=== PATIENT | male | born 1960 | race Caucasian/White ===

== ENCOUNTER → 2018-10-26 09:42 | Outpatient (CLI) | payer OTHER, SELFPAY ==
[2018-10-26 11:05] LABS: BUN 13 mg/dL (7-18); Creatinine, Serum 1.11 mg/dL (0.70-1.30); EST Glomerular Filtration Rate 72 mL/min (>60); Est Glom Filt Rate - Afr Amer 87 mL/min (>60)
== END ==
PROVIDERS: Family Provider Family Medicine; PCP Family Medicine
DX: I73.9 Peripheral vascular disease, unspecified (principal)
CPT/HCPCS: 36415; 82565; 84520

== ENCOUNTER → 2020-09-13 09:17 | Outpatient (CLI) | payer SELFPAY ==
[2020-09-16 05:06] LABS: HEPATITIS B SURFACE AG Negative (Negative); Hepatitis A AB, Total Negative (Negative); Hepatitis A IgM Antibody Negative (Negative); Hepatitis B Core AB IgM Negative (Negative); Hepatitis B Core Ab Total Negative (Negative); Hepatitis C Ab <0.1 s/co ratio (0.0-0.9); QNTFERON TB Mitogen Value > 10.00 IU/mL (.); QNTFERON TB Nil Value 0.04 IU/mL (.); QNTFERON TB1+ Ag Value 0.03 IU/mL (.); QNTFERON TB2+ Ag Value 0.04 IU/mL (.)
[2020-09-16 12:33] LABS: Hep B Surface Antibodies Non Reactive (.); QNTIFERON TB Positive Criteria Negative (Negative)
== END ==
LOC: MTLAB 09:18
PROVIDERS: PCP Family Medicine; Referring Provider Dermatology Pediatric Dermatology; Visit Provider Dermatology Pediatric Dermatology
DX: L40.0 Psoriasis vulgaris (principal); Z79.899 Other long term (current) drug therapy
CPT/HCPCS: 36415; 86480; 86704; 86705; 86706; 86708; 86709; 86803; 87340

== ENCOUNTER 2020-11-17 13:50 | Observation (INO) | payer OTHER, SELFPAY ==
[2020-11-17] VITALS (17 sets, daily range): BP systolic 132–176; BP diastolic 74–94; PULSE 82–90; RESP 13–19; TEMP 36–36.8; O2SAT 93–97; BMI 33.3; BMI 37.5; BMI 36.7
--- NOTE | 2020-11-17 14:11 | EKG12_ITS ---
Test Reason : Blood Pressure : / mmHG Vent. Rate : 084 BPM Atrial Rate : 084 BPM P-R Int : 162 ms QRS Dur : 104 ms QT Int : 378 ms P-R-T Axes : 031 -50 038 degrees QTc Int : 446 ms Normal sinus rhythm Left anterior fascicular block Poor R wave progression Abnormal ECG Confirmed by EMILY MURPHY, YAN ([id number]), order editor MERISSA MARTIN ([id number]) on 11/22/2020 2:18:21 PM Referred By: JOHANA Confirmed By:YAN DIAZ MD
--- NOTE | 2020-11-17 14:11 | RAD_ITS ---
STUDY: X-RAY CHEST REASON FOR EXAM: Male, 60 years old. Neuro deficit, acute, stroke suspected TECHNIQUE: Single AP portable view of the chest. COMPARISON: Comparison is made with prior study 07/14/2015. FINDINGS: EKG electrodes are seen. The lungs are clear and expanded. There is no demonstrated pleural abnormality. Normal size heart. Normal mediastinum and essence. Normal visualized pulmonary arteries. Normal visualized aortic arch and descending thoracic aorta. There are diffuse degenerative changes of the visualized thoracic spine. Normal visualized ribs, clavicles, and shoulders. There is no demonstrated abnormality of the visualized soft tissue structures of the upper abdomen. RAD/Chest 1 View IMPRESSION: No acute abnormality is seen. Electronically Signed: Renzo Allen MD at 15:06 EST , Service support ,
--- NOTE | 2020-11-17 14:11 | CT_ITS ---
STUDY: CT HEAD STROKE PROTOCOL W/O CONTRAST INJECTION REASON FOR EXAM: Male, 60 years old. Neuro deficit, acute, stroke suspected RADIATION DOSAGE (If Supplied By Facility): CTDIvol = ( 44.99 ) mGy, DLP = ( 812.98 ) mGycm TECHNIQUE: Transaxial CT imaging of the brain was performed without administration of intravenous contrast material. Individualized dose optimization techniques were used for this CT. COMPARISON: No relevant priors. FINDINGS: Normal soft tissue structures. Normal calvarium. There is mild cerebral atrophy with widening of the extra-axial spaces and ventricular dilatation. There are areas of decreased attenuation within the white matter tracts of the supratentorial brain, consistent with microvascular disease changes. Normal basal ganglia and thalami. Normal brainstem. Normal cerebellum. There is no intracranial hemorrhage. There are no findings of an acute ischemic infarction. Normal visualized paranasal sinuses. CT/STROKE Brain/Head without Cont IMPRESSION: Chronic involutional changes of the brain. N.B. : The above information has been verbally conveyed by Renzo Allen MD to Melissa Tita on 11/17/2020 15:03:15 (ET). Electronically Signed: Renzo Allen MD at 15:04 EST , Service support ,
--- NOTE | 2020-11-17 14:13 | ED.VISSUMM ---
- ER Visit Summary Date of Service: 11/17/20 Chief Complaint: Right arm weakness History of Present Illness: The patient is a 60 M with right arm weakness. Patient states that this started yesterday morning. 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 He states he also noticed a change in his gait and increasing right leg weakness as well. He denies speech or vision changes. Denies numbness or tingling. Denies vertigo. Denies confusion. Denies other complaints. Physical Examination: Vitals are stable. Patient is afebrile. Alert no acute distress. HEENT exam is unremarkable. Neck is supple. Lungs are clear and equal bilaterally. Heart is regular rate and rhythm. Abdomen is soft nontender nondistended. Extremities are unremarkable. Skin is warm and dry. NIH 1: Right arm weakness Remainder of exam is unremarkable. Emergency Department Course and Treatment: EKG is sinus rhythm rate of 84 with no acute ischemic changes. CBC shows white count 12.0, hemoglobin 17.1. Chemistries unremarkable. INR 1.1. Troponin is negative. Chest x-ray shows no acute process. CT head shows chronic changes. Due to patient's right arm weakness, concern for TIA versus CVA. Discussed with hospitalist for admission. Disposition: Admission Impression: Right arm weakness This note was generated with [employer] dictation software. It may contain incorrect words, spelling, and punctuation that were not noted in review of the chart prior to signing ED Disposition - Plan for ED Patient: Referrals: Lorie Jacques [Primary Care Provider] -
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
[2020-11-17 14:36] LABS: Absolute Lymphocyte Count 2.69 X10^3/uL (0.83-4.51); Absolute Neutrophil Count 6.9 X10^3/uL (2.0-7.7); Basophil# 0.09 X10^3/uL; Basophil% 0.8 % (0-1); Eosinophil# 0.93 X10^3/uL; Eosinophils% 7.8 % (0-5); Hematocrit 53.6 % (40-54); Hemoglobin 17.1 g/dL (13.0-16.5); Lymphocyte # 2.69 X10^3/ul (4.0); Lymphocyte % 22.5 % (19-41); Mean Corp Hgb Conc 31.9 g/dL (32-36); Mean Corpuscular Hgb 29.6 pg (27.0-32.0); Mean Corpuscular Volume 92.9 fL (80-94); Mean Platelet Vol. 10.6 fl (6.2-12.0); Monocyte# 1.25 X10^3/uL; Monocyte% 10.4 % (0-10); NRBC Flagged by Analyzer 0 % (0-5); Neutrophil # 6.93 X10^3/uL (2.7-7.7); Neutrophil % 57.8 % (47-70); Platelet Count 235 K/mm3 (150-450); RBC Distribution Width CV 15.1 % (11.6-14.6); RBC Distribution Width SD 51.8 fl (35.1-43.9); Red Blood Count 5.77 M/mm3 (4.6-6.2)
[2020-11-17 14:52] LABS: Anion Gap 4 (5-15); BUN 19 mg/dL (7-18); BUN/Creat Ratio 15.1 RATIO (10-20); Calcium,Total 9.6 mg/dL (8.5-10.1); Chloride 106 mmol/L (98-107); Creatinine, Serum 1.26 mg/dL (0.70-1.30); EST Glomerular Filtration Rate 62 mL/min (>60); Est Glom Filt Rate - Afr Amer 75 mL/min (>60); Estimated Creatinine Clearance 52.88 ml/min; Glucose 107 mg/dL (74-106); Potassium 3.8 mmol/L (3.5-5.1); Sodium Level 139 mmol/L (136-145)
[2020-11-17 14:53] LABS: International Normalized Ratio 1.1; Prothrombin Time (Protime)PT. 13.8 SECONDS (11.7-14.9)
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
--- NOTE | 2020-11-17 17:27 | ECHOCS_ITS ---
Reason For Study: TIA Procedure This was a 2D Doppler, Color Flow transthoracic echocardiogram. The exam was of poor technical quality due to body habitus.. Pt had difficulty with amount of pressure from probe needed to improve image quality. Exam performed portable in patient room. Left Ventricle Normal left ventricle. Left ventricular systolic function is normal. The estimated ejection fraction is 55-60 %. Right Ventricle Normal right ventricle. Normal systolic function. Atria Normal left atrium. Normal right atrium. Mitral Valve The mitral valve is structurally normal. No prolapse or stenosis seen. Tricuspid Valve Normal tricuspid valve. Aortic Valve Normal aortic valve. Pulmonic Valve The pulmonic valve is not well visualized. Pericardium/Pleural No pericardial effusion. Medication Diluted definity 5.0ml given slow IV push to enhance endocardial definition. MMode/2D Measurements & Calculations LVIDd: 2.4 cm IVSd: 1.1 cm Ao root diam: 3.1 cm LVIDs: 1.3 cm LVPWd: 1.1 cm FS: 43.1 % LAV(MOD-sp4): 29.7 ml LA A4 area: 13.6 cm2 LA dimension(2D): 3.6 cm RA A4 area: 10.0 cm2 Time Measurements MV dec time: 0.34 sec Doppler Measurements & Calculations MV E max gene: 64.2 cm/sec Lat Peak E' Gene: 5.9 cm/sec Med Peak E' Gene: 5.4 cm/sec MV A max gene: 98.5 cm/sec E/E' lat: 10.8 E/E' med: 12.0 MV E/A: 0.65 Ao V2 max: 97.8 cm/sec LV V1 max: 81.7 cm/sec Ao max P.8 mmHg LV V1 max P.7 mmHg Interpretation Summary TDS The estimated ejection fraction is 55-60 %. Contrast study showed Normal LV wall motion In comparison to study in 2012 No significant difference Ordering Physician: Yury Hoskins Performed By: Jillian Zafar, BALAJI, RVT
--- NOTE | 2020-11-17 17:27 | MRI_ITS ---
We are attempting to reach an attending provider to discuss findings. An addendum with communication details will be sent when the communication is complete. STUDY: MRI BRAIN WITHOUT CONTRAST REASON FOR EXAM: Male, 60 years old. right sided weakness TECHNIQUE: Standardized multiplanar fat and water weighted pulse sequences were obtained. COMPARISON: None. FINDINGS: Mild atrophy and moderate periventricular white matter ischemic changes.. There is a white matter lesion in the left parietal lobe demonstrating restricted diffusion consistent with acute ischemic changes. Normal bilateral basal ganglia. Normal thalami. There is no extra-axial fluid accumulation. Normal flow voids within the major intracranial circulation suggesting patency by spin echo criteria. Normal sella turcica, pituitary gland, infundibular stalk, optic chiasm and hypothalamus. Normal tectal plate and pineal gland. Normal midbrain, santos and medulla. Chronic ischemic change of the right cerebellar hemisphere.. Normal basal cisterns. Normal bilateral temporal bones. Normal bilateral internal auditory canals. No demonstrated orbital abnormality, within the constraints of a routine brain study. Moderate mucosal thickening of the left maxillary sinus. Normal calvarium and skull base. Normal visualized soft tissue structures. Normal visualized upper cervical spine. MRI/Brain without Contrast IMPRESSION: Mild atrophy and moderate periventricular white matter ischemic changes. Small focal acute deep white matter infarct in the left parietal lobe. Chronic ischemic changes in the right cerebellar hemisphere Electronically Signed: Low Rodrigues MD at 22:24 EST , Service support ,
[2020-11-17] MEDS: oxyCODONE 5 MG Tablet PO (18:21)
[2020-11-17] MEDS: Pentoxifylline 400 MG Tablet PO (22:07)
[2020-11-17] MEDS: Carvedilol 25 MG Tablet PO (22:07)
[2020-11-17] MEDS: APIXABAN 5 MG TABLET PO (22:07)
--- NOTE | 2020-11-17 23:10 | TELEMED_ITS ---
SOC Telemed has confirmed receipt of a request for visit. This document confirms receipt of the order initiating the consult. To find the results of the consultation, please view the patient's reports for the scanned Telemed Consult.
[2020-11-18 02:30] VITALS: BP 136/67; PULSE 76; RESP 16; TEMP 36.7; O2SAT 94
[2020-11-18 03:00] VITALS: PULSE 77
[2020-11-18 05:00] VITALS: BMI 36.7
[2020-11-18 06:00] VITALS: BP 142/82; PULSE 83; RESP 16; TEMP 36.6; O2SAT 95
[2020-11-18 06:36] LABS: Cholesterol 167 mg/dL (200); High Density Lipoprotein 29 mg/dL; Triglycerides 185 mg/dL; Very Low Density Lipoprotein 37 mg/dL (5-40)
[2020-11-18 07:00] VITALS: PULSE 81
[2020-11-18 07:40] VITALS: O2SAT 95
[2020-11-18 09:30] VITALS: BP 154/83; PULSE 84; RESP 16; TEMP 36.6; O2SAT 95
[2020-11-18] MEDS: Pentoxifylline 400 MG Tablet PO (09:35)
[2020-11-18] MEDS: Clopidogrel Bisulfate 75 MG Tablet PO (09:35)
[2020-11-18] MEDS: hydroCHLOROthiazide 25 MG Tablet PO (09:35)
[2020-11-18] MEDS: Carvedilol 25 MG Tablet PO (09:35)
[2020-11-18] MEDS: APIXABAN 5 MG TABLET PO (09:35)
--- NOTE | 2020-11-18 10:45 | PCM.DC ---
- Discharge Diagnoses Current Active Problems: Current Active and Chronic Problems (Last Updated 11/17/20 @ 17:[address] Yury Hoskins, DO) Benign essential hypertension (Chronic) History of pulmonary embolism (Chronic) Renal cell carcinoma (Chronic) Right sided weakness (Acute) Reason(s) for Visit for Discharge Instructions: Acute CVA You will use the following diet at home:: Cardiac Your food should be the consistency of: Regular Your liquids should be the consistency of: Regular/Thin Discharge Activity: Return to Normal Activity Additional Instructions: Take note of changes to your medication. You are being discharged on Plavix with Eliquis as well as atorvastatin. Continue to take all your medication. Look out for evidence of bleeding. You should follow up with your primary care doctor within 1 to 2 weeks. You need a carotid ultrasound to be done as part of your risk stratification. Allergies/Adverse Reactions: Allergies aspirin Allergy (Verified 11/17/20 13:51) Upset Stomach Medications to take at Discharge Apixaban [Eliquis] 5 mg PO BID 11/17/20 Carvedilol 25 mg PO BID 11/17/20 Hydrochlorothiazide [Hctz] 25 mg PO DAILY 11/17/20 Pentoxifylline 400 mg PO TID 11/17/20 Secukinumab [Cosentyx (2 Syringes)] 300 mg SQ QMONTH 11/17/20 Atorvastatin Calcium 40 mg PO DAILY 30 Days #30 tablet 11/18/20 Clopidogrel Bisulfate [Plavix] 75 mg PO DAILY 30 Days #30 tab 11/18/20 The following prescriptions were given: Atorvastatin Calcium 40 mg PO DAILY 30 Days #30 tablet Clopidogrel Bisulfate [Plavix] 75 mg PO DAILY 30 Days #30 tab Transmission Status: Received by [id number] Primary Care Physician: Lorie Jacques [Primary Care Provider] - Please follow up with your Primary Care Physician in: within 1-2 weeks Test Results: Test results from this visit will be discussed in further detail at your follow-up appointment, if applicable. Please Follow Up With: Heath To MD When: within 2-4 weeks Proposed Discharge Date: 11/18/20
--- NOTE | 2020-11-18 12:00 | CASEMGMT ---
Social Work SW met with pt and and introduced self and role of SW. Pt presenting with diagnosis of stroke. SW completed PHQ9 with pt score of 0/27. Pt denying any depressive feelings at this time. Pt and then discussing concerns about finances as pt does not have insurance and per ED SW note, pt does not qualify for Medicaid. Discussed concerns with prescriptions costs. SW will provide information to pt on prescription assitance programs and will ask RNCM to talk to pt about possibility of Eliquis assistance Card. 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 SW discussed pt going to out patient therapy for strengthening of arm and hand. SW provided information on self pay ayala for therapy at [facility]. Pt and states they will consider. SW spoke with pt about possibility of depression following stroke and encouraged pt and to be self aware of mood and seek assistance should pt mood decline in coming weeks. SW made referral to [facility] [place] for Eliquis assistance and provided additional prescription resources for her to provide to pt. [facility] [place]
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
--- NOTE | 2020-11-18 12:31 | CASEMGMT ---
Therapy is recommending OP OT at discharge. Pt is also self-pay and per Sulema KHALIL, pt has been paying $1500/month for Eliquis and was also interested in Rx assistance. This RN CM to room with OP therapy script, Prescription [facility], and Eliquis 30 day trial card/$10 co-pay card at this time. Pt/ updated on all, voice understanding. Pt/ voice no further questions/concerns/needs. Pt ready for discharge. [place]
== END 2020-11-18 12:08 | disposition home or self-care (01) ==
LOC: ED 14:38 → PCU 11-18 07:04
PROVIDERS: Emergency Provider Emergency Medicine; Visit Provider Internal Medicine
DX: I63.9 Cerebral infarction, unspecified (principal); R53.1 Weakness; I10 Essential (primary) hypertension; R26.9 Unspecified abnormalities of gait and mobility; Z86.711 Personal history of pulmonary embolism; Z85.528 Personal history of other malignant neoplasm of kidney; Z79.01 Long term (current) use of anticoagulants; Z79.899 Other long term (current) drug therapy; I73.9 Peripheral vascular disease, unspecified; F17.210 Nicotine dependence, cigarettes, uncomplicated; R29.701 NIHSS score 1; I44.4 Left anterior fascicular block; F40.240 Claustrophobia
CPT/HCPCS: 36415; 70450; 70551; 71045; 80048; 80061; 84484; 85025; 85610; 85730; 92523; 92610; 93005; 93306; 94762; 97162; 97166; 99218; 99285; Q9957; A4216; C8929; G0378

== ENCOUNTER 2021-10-17 16:17 | Outpatient (CLI) | payer SELFPAY ==
[2021-10-19 21:07] LABS: QNTFERON TB Mitogen Value > 10.00 IU/mL (.); QNTFERON TB Nil Value 0.03 IU/mL (.); QNTFERON TB1+ Ag Value 0.04 IU/mL (.); QNTFERON TB2+ Ag Value 0.04 IU/mL (.)
[2021-10-19 22:15] LABS: QNTIFERON TB Positive Criteria Negative (Negative)
== END 2021-10-17 23:59 | disposition short-term general hospital (02) ==
LOC: MTLAB 16:19
PROVIDERS: Referring Provider Physician Assistant Medical; Visit Provider Physician Assistant Medical
DX: L40.0 Psoriasis vulgaris (principal); Z79.899 Other long term (current) drug therapy
CPT/HCPCS: 36415; 86480

== ENCOUNTER → 2024-03-13 | Outpatient (CLI) | payer MEDICARE, SELFPAY ==
[2024-03-13 12:33] LABS: Absolute Lymphocyte Count 2.16 X10^3/uL (0.83-4.51); Absolute Neutrophil Count 5.5 X10^3/uL (2.0-7.7); Basophil% 1.1 % (0-1); Eosinophils% 5.4 % (0-5); Hematocrit 47.5 % (40-54); Hemoglobin 15.2 g/dL (13.0-16.5); Lymphocyte # 2.16 X10^3/ul (0.83-4.51); Lymphocyte % 23.4 % (19-41); Mean Corpuscular Hgb 29.2 pg (27.0-32.0); Mean Corpuscular Volume 91.3 fL (80-94); Mean Platelet Vol. 10.3 fl (6.2-12.0); Monocyte# 0.92 X10^3/uL; NRBC Flagged by Analyzer 0 % (0-5); Neutrophil # 5.51 X10^3/uL (2.7-7.7); Neutrophil % 59.6 % (47-70); Platelet Count 243 K/mm3 (150-450); RBC Distribution Width CV 15.2 % (11.6-14.6); RBC Distribution Width SD 50.4 fl (35.1-43.9); White Blood Count 9.2 K/mm3 (4.4-11.0)
[2024-03-13 12:47] LABS: Hemoglobin A1c 5.8 % (3.8-5.6)
[2024-03-13 12:50] LABS: Anion Gap 6 (5-15); BUN 21 mg/dL (7-18); BUN/Creat Ratio 16.3 RATIO (10-20); Calcium,Total 9.3 mg/dL (8.5-10.1); Chloride 105 mmol/L (98-107); Cholesterol 98 mg/dL (200); Creatinine, Serum 1.29 mg/dL (0.70-1.30); EST Glomerular Filtration Rate 59 mL/min (>60); Est Glom Filt Rate - Afr Amer 72 mL/min (>60); Glucose 121 mg/dL (74-106); High Density Lipoprotein 30 mg/dL; PSA,Total- Diagnostic 6.17 ng/mL (0.0-4.0); Potassium 3.8 mmol/L (3.5-5.1); Sodium Level 139 mmol/L (136-145); Thyroid Stim Hormone (TSH) 0.64 uIU/mL (0.358-3.74); Triglycerides 161 mg/dL; Very Low Density Lipoprotein 32 mg/dL (5-40)
== END | disposition home or self-care (01) ==
LOC: VSLAB 08:59
PROVIDERS: PCP Nurse Practitioner Family; Visit Provider Nurse Practitioner Family
DX: I10 Essential (primary) hypertension (principal); R73.03 Prediabetes; R97.20 Elevated prostate specific antigen [PSA]
CPT/HCPCS: 36415; 80048; 80061; 83036; 84153; 84443; 85025

== ENCOUNTER → 2024-05-09 | Outpatient (CLI) | payer MEDICARE, SELFPAY ==
[2024-05-13 19:07] LABS: QNTFERON TB Mitogen Value > 10.00 IU/mL (.); QNTFERON TB Nil Value 0.01 IU/mL (.); QNTFERON TB1+ Ag Value 0.02 IU/mL (.); QNTFERON TB2+ Ag Value 0.02 IU/mL (.); QNTIFERON TB Positive Criteria Negative (Negative)
== END | disposition home or self-care (01) ==
LOC: MTLAB 10:00
PROVIDERS: PCP Nurse Practitioner Family; Referring Provider Physician Assistant Medical; Visit Provider Physician Assistant Medical
DX: L40.0 Psoriasis vulgaris (principal); M12.9 Arthropathy, unspecified; F17.200 Nicotine dependence, unspecified, uncomplicated; Z79.899 Other long term (current) drug therapy
CPT/HCPCS: 36415; 86480

== ENCOUNTER → 2025-03-06 | Outpatient (CLI) | payer MEDICARE, SELFPAY ==
--- OUTSIDE RECORDS SUMMARY | 2025-03-06 09:03 | XMS RPT_ITS | CCD ---
Author Organization [facility] Inform ion Partnership [facility] Care Team Providers Care Wood Piler Name Role Phone Unavailable Primary Care Provider UnavailSophie Michelle MD Primary Care Provider [phone] SOPHIE BERNAL Primary Care Unavailable NARCISO HUNTLEY Attending Unavailable [facility] Unavailable Frank Darnell Leonard Primary Care Unavailable Neftali Galdamez Attending Unavailable Neftali Galdamez Referring Unavailable Darnell Doyle Primary Care Unavailable Allergies Allergy Classification Reported Allergen(s) Allergy Type Date of Onset Reaction(s) Facility (2 sources) Aspirin; Translations: [ASPIRIN] Drug Allergy 6 Shortness Of Breath [facility] (2 sources) Doxycycline; Translations: [DOXYCYCLINE] Drug Allergy 5 GI Intolerance [facility] (1 source) Aspirin Drug Allergy 1 [facility] Repository Medications Current Medications Medication Drug Class(es) Dates Sig (Normalized) Sig (Original) allopurinol 100 mg oral tablet (1 source) Xanthine Oxidase Inhibitor take 1 tablet by mouth once daily allopurinoL (ZYLOPRIM) 100 MG tablet Take 1 (one) tablet (100 mg total) by mouth daily . 0 Active apixaban 5 mg oral tablet (1 source) Factor Xa Inhibitor Start: 01-14-2019 take 1 tablet by mouth twice daily apixaban (ELIQUIS) 5 mg Tab Take 1 (one) tablet (5 mg total) by mouth 2 (two) times a day . 0 01/14/2019 Active apremilast 30 mg oral tablet (1 source) take 1 tablet by mouth twice daily apremilast (Otezla) 30 mg Tab Take 1 (one) tablet (30 mg total) by mouth 2 (two) times a day . 0 Active atorvastatin 40 mg oral tablet (1 source) HMG-CoA Reductase Inhibitor take 1 tablet by mouth once daily atorvastatin (LIPITOR) 40 MG tablet Take 1 (one) tablet (40 mg total) by mouth daily . 0 Active carvedilol 25 mg oral tablet (1 source) alpha-Adrenergic Rafa, beta-Adrenergic Rafa take 1 tablet by mouth twice daily carvediloL (COREG) 25 MG tablet Take 1 (one) tablet (25 mg total) by mouth 2 (two) times a day . 0 Active ciprofloxacin 3 mg/ml / dexamethasone 1 mg/ml otic suspension (1 source) Corticosteroid, Quinolone Antimicrobial Start: 01-08-2023 ciprofloxacin-dexa methasone (CIPRODEX) otic suspension Indications: Acute suppr otitis media w/o spon rupt ear drum, left ear Administer 4 (four) drops into the left ear 2 (two) times a day . 7.5 mL 0 01/08/2023 Active clopidogrel 75 mg oral tablet (1 source) P2Y12 Platelet Inhibitor take 1 tablet by mouth once daily clopidogreL (PLAVIX) 75 mg tablet Take 1 (one) tablet (75 mg total) by mouth daily . 0 Active gabapentin 100 mg oral capsule (2 sources) Anti-epileptic Agent Start: 12-18-2022 gabapentin (NEURONTIN) 100 MG capsule TAKE 1 CAPSULE IN THE MORNING DAILY 0 12/18/2022 Active Start: 12-18-2022 gabapentin (NE URONTIN) 300 MG capsule Take by mouth nightly . 0 12/18/2022 Active hydroCHLOROthiazide 25 mg oral tablet (1 source) Thiazide Diuretic Start: 07-28-2019 take 1 tablet by mouth once daily hydroCHLOROthiazide (HYDRODIURIL) 25 MG tablet Take 1 (one) tablet (25 mg total) by mouth daily . 0 07/28/2019 Active ibuprofen 800 mg oral tablet (1 source) Nonsteroidal Anti-inflammator y Drug Start: 03-22-2006 take 1 tablet by mouth three times daily ibuprofen (ADVIL,MOTRIN) 800 MG tablet Take 1 (one) tablet (800 mg total) by mouth 3 (three) times a day . 0 03/22/2006 Active pentoxifylline 400 mg extended release oral tablet (1 source) Blood Viscosity Help Desk Assistant Start: 01-14-2019 take 1 tablet by mouth three times daily at mealtime pentoxifylline (TRENTal) 400 mg CR tablet Take 1 (one) tablet (400 mg total) by mouth 3 (three) times a day with meals . 0 01/14/2019 Active 1 ml secukinumab 150 mg/ml prefilled syringe (1 source) Interleukin-17A Antagonist secukinumab (Cosenty x, 2 Syringes,) 150 mg/mL Syrg Inject 2 mL (300 mg total) under the skin . 0 Active tiZANidine 4 mg oral capsule (1 source) Central alpha-2 Adrenergic Agonist Start: 12-28-2022 take 1 tablet by mouth at bedtime as needed for pain tiZANidine (ZANAFLEX) 4 MG capsule 1 tab by mouth at bedtime as needed for back pain/muscle spasm 0 12/28/2022 Active Problems Problem Classification Problem Date Documented Date Episodic/Chronic Essential hypertension (1 source) Essential (primary) hypertension; Translations: [Essential (primary) hypertension] Onset: 03-31-2024 Chronic Other ear and sense organ disorders (3 sources) Conductive hearing loss, unilateral, left ear, with unrestricted hearing on the contralateral side; Translations: [Conductive hearing loss, unilateral] Onset: 01-08-2023 01-08-2023 Chronic Other inflammatory condition of skin (1 source) Psoriasis vulgaris; Translations: [Psoriasis vulgaris] Onset: 05-26-2024 Chronic Otitis media and related conditions (6 sources) Perforation of left tympanic membrane; Translations: [Unspecified perforation of tympanic membrane, left ear] Onset: 01-08-2023 01-08-2023 Episodic Results Test Name Value Interpretation Reference Range Facility Quantiferon TB-Gold+on 05-13 QFT MITOGEN REGINALDO > 10.00 Normal . [facility] Comment on above: Performed By: #### L 3400.8000 #### [facility] [address] [facility] [place], [address] (650 QFT NIL VALUE 0.01 IU/mL Normal . [facility] Comment on above: Performed By: #### L 3400.8000 #### [facility] [address] [facility] [place], [place], [id number] (631 QFT TB GOLD+ Comment Normal . [facility] Comment on above: Result Comment: Homero tiFERON-TB Gold Plus is a qualitative indirect test for M tuberculosis infection (including disease) and is intended for use in conjunction with risk assessment, radiography, and other medical and diagnostic evaluations. The QuantiFERON-TB Gold Plus result is determined by subtracting the Nil value from either TB antigen (Ag) value. The Mitogen tube serves as a control for the test. Performed By: #### L 3400.8000 #### [facility] [address] [place], [address] QFT TB POS CRIT Negative Normal Negative [facility] Comment on above: Result Comment: No r esponse to M tuberculosis antigens detected. Infection with M tuberculosis is unlikely, but high risk individuals should be considered for additional testing (ATS/IDSA/CDC Clinical Practice Guidelines, 2017). The reference range is an Antigen minus Nil result of <0.35 IU/mL. The specimen received for QuantiFERON testing was incubated by the ordering institution. Specific procedures outlined in our Directory of Services and in the package insert for the QuantiFERON Gold (In Tube) test must be followed to enable for proper stimulation of cells for the production of interferon gamma. Chemiluminescence immunoassay methodology Performed at: [facility] [id number] Product Assembler: Bharat Mojica PhD, Phone: [phone] Performed By: #### L 3400.8000 #### [facility] [address] [place], [address] QFT TB1+ AG REGINALDO 0.02 IU/mL Normal . [facility] Comment on above: Performed By: #### L 3400.8000 #### [facility] [address] [place], [address] QFT TB2+ AG REGINALDO 0.02 IU/mL Normal . [facility] Comment on above: Performed By: #### L 3400.8000 #### [facility] [address] [place], [place], [id number] Basic Metabolic Profile (BMP )on 03-13-2024 BUN/CRE 16.3 RATIO Normal 10-20 [facility] Comment on above: Performed By: #### L 500.4100, L100.0100, L501.9940, L501.9985, L500.2500, L501.9520 #### [facility] [address] [place], [address] CA,Total 9.3 mg/dL Normal 8.5-10.1 [facility] Comment on above: Performed By: #### L 500.4100, L100.0100, L501.9940, L501.9985, L500.2500, L501.9520 #### [facility] [address] [place], [address] Chloride [Moles/Vol] 105 mmol/L Normal 98-107 [facility] Comment on above: Performed By: #### L 500.4100, L100.0100, L501.9940, L501.9985, L500.2500, L501.9520 #### [facility] [address] [place], [address] CO2 [Moles/Vol] 28.0 mmol/L Normal 21.0-32.0 [facility] Comment on above: Performed By: #### L 500.4100, L100.0100, L501.9940, L501.9985, L500.2500, L501.9520 #### [facility] [address] [place], [address] Creatinine [Mass/Vol] 1.29 mg/dL Normal 0.70-1.30 [facility] Comment on above: Result Comment: The validity of the calculated GFR GFRAA in patients over 70 years has not been determined. Clinical correlation is essential. Performed By: #### L 500.4100, L100.0100, L501.9940, L501.9985, L500.2500, L501.9520 #### [facility] [address] [place], [address] EST GFR - AA 72 mL/min Normal >60 [facility] Comment on above: Result Comment: Afri can Spanish GFR Calc Performed By: #### L 500.4100, L100.0100, L501.9940, L501.9985, L500.2500, L501.9520 #### [facility] [address] [place], [address] GAP 6 Normal 5-15 [facility] Comment on above: Performed By: #### L 500.4100, L100.0100, L501.9940, L501.9985, L500.2500, L501.9520 #### [facility] [address] [place], [address] GFR/1.73 sq M.predicted among non-blacks MDRD (S/P/Bld) [Vol rate/Area] 59 mL/min/{1.73_m2} Low >60 [facility] Comment on above: Result Comment: Non- GFR Calc Performed By: #### L 500.4100, L100.0100, L501.9940, L501.9985, L500.2500, L501.9520 #### [facility] [address] [place], [address] Glucose [Mass/Vol] 121 mg/dL High 74-106 [facility] Comment on above: Result Comment: Fast ing Glucose result from 100 to 125 mg/dL suggests IMPAIRED HOMEOSTASIS per A.D.A. criteria. Performed By: #### L 500.4100, L100.0100, L501.9940, L501.9985, L500.2500, L501.9520 #### [facility] [address] [place], [address] Potassium [Moles/Vol] 3.8 mmol/L Normal 3.5-5.1 [facility] Comment on above: Performed By: #### L 500.4100, L100.0100, L501.9940, L501.9985, L500.2500, L501.9520 #### [facility] [address] [place], [address] Sodium [Moles/Vol] 139 mmol/L Normal 136-145 [facility] Comment on above: Performed By: #### L 500.4100, L100.0100, L501.9940, L501.9985, L500.2500, L501.9520 #### [facility] [address] [place], [address] Urea nitrogen [Mass/Vol] 21 mg/dL High 7-18 [facility] Comment on above: Performed By: #### L 500.4100, L100.0100, L501.9940, L501.9985, L500.2500, L501.9520 #### [facility] [address] [place], [address] BUN Normal -18 [facility] Comment on above: Result Comment: DUPL ICATE Performed By: #### L 500.4100, L500.2500, L100.0100 #### [facility] [address] [place], [address] BUN/CRE Normal 10-20 [facility] Comment on above: Result Comment: DUPL ICATE Performed By: #### L 500.4100, L500.2500, L100.0100 #### [facility] [address] [place], [address] CA,Total Normal 8.5-10.1 [facility] Comment on above: Result Comment: DUPL ICATE Performed By: #### L 500.4100, L500.2500, L100.0100 #### [facility] [address] [place], [address] CL Normal 98-107 [facility] Comment on above: Result Comment: DUPL ICATE Performed By: #### L 500.4100, L500.2500, L100.0100 #### [facility] [address] [place], [address] CO2 Normal 21.0-32.0 [facility] Comment on above: Result Comment: DUPL ICATE Performed By: #### L 500.4100, L500.2500, L100.0100 #### [facility] [address] [place], [address] CREAT,SERUM Normal 0.70-1.30 [facility] Comment on above: Result Comment: DUPL ICATE Performed By: #### L 500.4100, L500.2500, L100.0100 #### [facility] [address] [place], [address] EST GFR Normal >60 [facility] Comment on above: Result Comment: DUPL ICATE Performed By: #### L 500.4100, L500.2500, L100.0100 #### [facility] [address] [place], [address] EST GFR - AA Normal >60 [facility] Comment on above: Result Comment: DUPL ICATE Performed By: #### L 500.4100, L500.2500, L100.0100 #### [facility] [address] [place], [address] GAP Normal 5-15 [facility] Comment on above: Result Comment: DUPL ICATE Performed By: #### L 500.4100, L500.2500, L100.0100 #### [facility] [address] [place], [address] GLU Normal 74-106 [facility] Comment on above: Result Comment: DUPL ICATE Performed By: #### L 500.4100, L500.2500, L100.0100 #### [facility] [address] [place], [address] Potassium Normal 3.5-5.1 [facility] Comment on above: Result Comment: DUPL ICATE Performed By: #### L 500.4100, L500.2500, L100.0100 #### [facility] [address] [place], [address] Basic Metabolic Profile (BMP) Normal 136-145 [facility] Comment on above: Result Comment: DUPL ICATE Performed By: #### L 500.4100, L500.2500, L100.0100 #### [facility] [address] [place], [address] CBC W/Diff, Automatedon 06-2 Absolute Lymph 2.16 X10 3/uL Normal 0.83-4.51 [facility] Comment on above: Performed By: #### L 500.4100, L100.0100, L501.9940, L501.9985, L500.2500, L501.9520 #### [facility] [address] [place], [address] Absolute Neut 5.5 X10 3/uL Normal 2.0-7.7 [facility] Comment on above: Performed By: #### L 500.4100, L100.0100, L501.9940, L501.9985, L500.2500, L501.9520 #### [facility] [address] [place], [address] Basophils/100 WBC (Bld) 1.1 % High 0-1 [facility] Comment on above: Performed By: #### L 500.4100, L100.0100, L501.9940, L501.9985, L500.2500, L501.9520 #### [facility] [address] [place], [address] Eosinophils/100 WBC (Bld) 5.4 % High 0-5 [facility] Comment on above: Performed By: #### L 500.4100, L100.0100, L501.9940, L501.9985, L500.2500, L501.9520 #### [facility] [address] [place], [address] Erythrocyte distribution width (RBC) [Ratio] 15.2 % High 11.6-14.6 [facility] Comment on above: Performed By: #### L 500.4100, L100.0100, L501.9940, L501.9985, L500.2500, L501.9520 #### [facility] [address] [place], [address] Hematocrit (Bld) [Volume fraction] 47.5 % Normal 40-54 [facility] Comment on above: Performed By: #### L 500.4100, L100.0100, L501.9940, L501.9985, L500.2500, L501.9520 #### [facility] [address] [facility] [place], [address] Hemoglobin (Bld) [Mass/Vol] 15.2 g/dL Normal 13.0-16.5 [facility] Comment on above: Performed By: #### L 500.4100, L100.0100, L501.9940, L501.9985, L500.2500, L501.9520 #### [facility] [address] [place], [address] IG% 0.500 Normal 0.0-0.9 [facility] Comment on above: Result Comment: IG% - Immature Granulocytes (promyelocytes, myelocytes and metamyelocytes) > 1% indicates that a LEFT SHIFT is Present. Performed By: #### L 500.4100, L100.0100, L501.9940, L501.9985, L500.2500, L501.9520 #### [facility] [address] [place], [address] Lymphocytes/100 WBC (Bld) 23.4 % Normal 19-41 [facility] Comment on above: Performed By: #### L 500.4100, L100.0100, L501.9940, L501.9985, L500.2500, L501.9520 #### [facility] [address] [place], [address] MCH (RBC) [Entitic mass] 29.2 pg Normal 27.0-32.0 [facility] Comment on above: Performed By: #### L 500.4100, L100.0100, L501.9940, L501.9985, L500.2500, L501.9520 #### [facility] [address] [place], [address] MCHC (RBC) [Mass/Vol] 32.0 g/dL Normal 32-36 [facility] Comment on above: Performed By: #### L 500.4100, L100.0100, L501.9940, L501.9985, L500.2500, L501.9520 #### [facility] [address] [place], [address] MCV (RBC) [Entitic vol] 91.3 fL Normal 80-94 [facility] Comment on above: Performed By: #### L 500.4100, L100.0100, L501.9940, L501.9985, L500.2500, L501.9520 #### [facility] [address] [place], [address] Monocytes/100 WBC (Bld) 10.0 % Normal 0-10 [facility] Comment on above: Performed By: #### L 500.4100, L100.0100, L501.9940, L501.9985, L500.2500, L501.9520 #### [facility] [address] [place], [address] Neutrophils/100 WBC (Bld) 59.6 % Normal 47-70 [facility] Comment on above: Performed By: #### L 500.4100, L100.0100, L501.9940, L501.9985, L500.2500, L501.9520 #### [facility] [address] [place], [address] Nucleated RBC (Bld) [#/Vol] 0 10*3/uL Normal 0-5 [facility] Comment on above: Performed By: #### L 500.4100, L100.0100, L501.9940, L501.9985, L500.2500, L501.9520 #### [facility] [address] [place], [address] Platelet mean volume (Bld) [Entitic vol] 10.3 fL Normal 6.2-12.0 [facility] Comment on above: Performed By: #### L 500.4100, L100.0100, L501.9940, L501.9985, L500.2500, L501.9520 #### [facility] [address] [place], [address] Platelets (Bld) [#/Vol] 243 10*3/uL Normal 150-450 [facility] Comment on above: Performed By: #### L 500.4100, L100.0100, L501.9940, L501.9985, L500.2500, L501.9520 #### [facility] [address] [place], [address] RBC (Bld) [#/Vol] 5.20 10*6/uL Normal 4.6-6.2 [facility] Comment on above: Performed By: #### L 500.4100, L100.0100, L501.9940, L501.9985, L500.2500, L501.9520 #### [facility] [address] [place], [address] RDW SD 50.4 fl High 35.1-43.9 [facility] Comment on above: Performed By: #### L 500.4100, L100.0100, L501.9940, L501.9985, L500.2500, L501.9520 #### [facility] [address] [place], [address] WBC (Bld) [#/Vol] 9.2 10*3/uL Normal 4.4-11.0 [facility] Comment on above: Performed By: #### L 500.4100, L100.0100, L501.9940, L501.9985, L500.2500, L501.9520 #### [facility] [address] [place], [address] Absolute Neut Normal 2.0-7.7 [facility] Comment on above: Result Comment: DUPL ICATE Performed By: #### L 500.4100, L500.2500, L100.0100 #### [facility] [address] [place], [address] HCT Normal 40-54 [facility] Comment on above: Result Comment: DUPL ICATE Performed By: #### L 500.4100, L500.2500, L100.0100 #### [facility] [address] [place], [address] HGB Normal 13.0-16.5 [facility] Comment on above: Result Comment: DUPL ICATE Performed By: #### L 500.4100, L500.2500, L100.0100 #### [facility] [address] [place], [address] MCH Normal 27.0-32.0 [facility] Comment on above: Result Comment: DUPL ICATE Performed By: #### L 500.4100, L500.2500, L100.0100 #### [facility] [address] [place], [address] MCHC Normal 32-36 [facility] Comment on above: Result Comment: DUPL ICATE Performed By: #### L 500.4100, L500.2500, L100.0100 #### [facility] [address] [place], [address] MCV Normal 80-94 [facility] Comment on above: Result Comment: DUPL ICATE Performed By: #### L 500.4100, L500.2500, L100.0100 #### [facility] [address] [place], [address] NEUT% Normal 47-70 [facility] Comment on above: Result Comment: DUPL ICATE Performed By: #### L 500.4100, L500.2500, L100.0100 #### [facility] [address] [place], [address] PLT Normal 150-450 [facility] Comment on above: Result Comment: DUPL ICATE Performed By: #### L 500.4100, L500.2500, L100.0100 #### [facility] [address] [place], [address] RBC Normal 4.6-6.2 [facility] Comment on above: Result Comment: DUPL ICATE Performed By: #### L 500.4100, L500.2500, L100.0100 #### [facility] [address] [place], [address] RDW CV Normal 11.6-14.6 [facility] Comment on above: Result Comment: DUPL ICATE Performed By: #### L 500.4100, L500.2500, L100.0100 #### [facility] [address] [place], [address] RDW SD Normal 35.1-43.9 [facility] Comment on above: Result Comment: DUPL ICATE Performed By: #### L 500.4100, L500.2500, L100.0100 #### [facility] [address] [place], [address] WBC Normal 4.4-11.0 [facility] Comment on above: Result Comment: DUPL ICATE Performed By: #### L 500.4100, L500.2500, L100.0100 #### [facility] [address] [place], [address] Hemoglobin A1con 03-13-2024 HbA1c (Bld) [Mass fraction] 5.8 % High 3.8-5.6 [facility] Comment on above: Result Comment: Norm al < 5.7 % Prediabetic 5.7 - 6.4 % Diabetic >or= 6.5 % Please note range changes. Performed By: #### L 500.4100, L100.0100, L501.9940, L501.9985, L500.2500, L501.9520 #### [facility] [address] [place], [address] Lipid Profileon 03-13-2024 Cholesterol [Mass/Vol] 98 mg/dL Normal 200 [facility] Comment on above: Result Comment: <200 mg/dL Desirable 200-240 mg/dL Borderline >240 mg/dL High Risk Performed By: #### L 500.4100, L100.0100, L501.9940, L501.9985, L500.2500, L501.9520 #### [facility] [address] [place], [address] Cholesterol in HDL [Mass/Vol] 30 mg/dL Low [facility] Comment on above: Result Comment: The drugs N-Acetylcysteine and Metamizole may falsely depress this assay. Reference Range HDL <40 mg/dL Low HDL Cholesterol HDL >or= 60 mg/dL High HDL Cholesterol Performed By: #### L 500.4100, L100.0100, L501.9940, L501.9985, L500.2500, L501.9520 #### [facility] [address] [place], [address] Cholesterol in LDL [Mass/Vol] 36 mg/dL Normal 0-130 [facility] Comment on above: Performed By: #### L 500.4100, L100.0100, L501.9940, L501.9985, L500.2500, L501.9520 #### [facility] [address] [place], [address] Cholesterol in VLDL [Mass/Vol] 32 mg/dL Normal 5-40 [facility] Comment on above: Performed By: #### L 500.4100, L100.0100, L501.9940, L501.9985, L500.2500, L501.9520 #### [facility] [address] [place], [address] Triglyceride [Mass/Vol] 161 mg/dL Normal [facility] Comment on above: Result Comment: The drugs N-Acetylcysteine and Metamizole may falsely depress this assay. Serum Triglycerides Reference Interval Normal <150 mg/dL Borderline high 150 - 199 mg/dL High 200 - 499 mg/dL Very High > or = 500 mg/dL Performed By: #### L 500.4100, L100.0100, L501.9940, L501.9985, L500.2500, L501.9520 #### [facility] [address] [place], [address] CHOL Normal 200 [facility] Comment on above: Result Comment: DUPL ICATE Performed By: #### L 500.4100, L500.2500, L100.0100 #### [facility] [address] [place], [address] HDL Normal [facility] Comment on above: Result Comment: DUPL ICATE Performed By: #### L 500.4100, L500.2500, L100.0100 #### [facility] [address] [place], [address] LDL Normal 0-130 [facility] Comment on above: Result Comment: DUPL ICATE Performed By: #### L 500.4100, L500.2500, L100.0100 #### [facility] [address] [place], [address] TRIG Normal [facility] Comment on above: Result Comment: DUPL ICATE Performed By: #### L 500.4100, L500.2500, L100.0100 #### [facility] [address] [place], [address] VLDL Normal 5-40 [facility] Comment on above: Result Comment: DUPL ICATE Performed By: #### L 500.4100, L500.2500, L100.0100 #### [facility] [address] [place], [address] PSA,Total- Diagnosticon 02-16 PSA, DIAGNOSTIC 6.17 ng/mL High 0.0-4.0 [facility] Comment on above: Result Comment: This test was performed using the TPSA assay method for the [employer] chemistry system. Values obtained with different assay methods cannot be used interchangably. When changing PSA assays in the course of monitoring a patient, additional sequential testing should be carried out to confirm baseline values. Performed By: #### L 500.4100, L100.0100, L501.9940, L501.9985, L500.2500, L501.9520 #### [facility] [address] [place], [address] Thyroid Stim Hormone (TSH)on 03-13-2024 TSH 0.64 uIU/mL Normal 0.358-3.74 [facility] Comment on above: Performed By: #### L 500.4100, L100.0100, L501.9940, L501.9985, L500.2500, L501.9520 #### [facility] [address] [place], [address] BLOOD TB SCREENon 05-14-2023 M. tuberculosis tuberculin stim IFN-g Ql (Bld) Negative Normal [facility] Comment on above: Order Comment: Speci men Type: BLOOD SPECIMEN [facility]ing Facility: [facility] Address: [address] [place] [address], [place] [address] Performed By: #### I NFTBP #### [facility] CLIA [id number] [address] [place] [address] [place] MITOGEN MINUS NIL 2.22 IU/mL Normal >=0.50 [facility] Comment on above: Order Comment: Speci men Type: BLOOD SPECIMEN Ordering Facility: [facility] Address: [address] [place] [address] Performed By: #### I NFTBP #### [facility] CLIA [id number] [address] [place] [address] OF [place] TB GAMMA INTERPRETATION Infection with M. tuberculosis complex is unlikely. If latent tuberculosis infection is highly suspected, a negative result does not rule out the infection. Specimens from immunocompromised patients and those <5 years of age may show false negative results. In case of a contact investigation, please repeat 8-12 weeks after a known exposure. Normal [facility] Comment on above: Order Comment: Speci men Type: BLOOD SPECIMEN Ordering Facility: [facility] Address: [address] [place] [address] Performed By: #### I NFTBP #### [facility] CLIA [id number] [address] [place] [address] TB NIL 0.00 IU/mL Normal <=8.00 [facility] Comment on above: Order Comment: Speci men Type: BLOOD SPECIMEN Ordering Facility: [facility] Address: [address] [place] [address], [place] [address] Performed By: #### I NFTBP #### [facility] CLIA [id number] [address] [place] [address] [place] TB1 AG MINUS NIL 0.00 IU/mL Normal <0.35 [facility] Comment on above: Order Comment: Speci men Type: BLOOD SPECIMEN Ordering Facility: [facility] Address: [address] [place] [address] Performed By: #### I NFTBP #### [facility] CLIA [id number] [address] [place] [address] [place] TB2 AG MINUS NIL 0.00 IU/mL Normal <0.35 [facility] Comment on above: Order Comment: Speci men Type: BLOOD SPECIMEN Ordering Facility: [facility] Address: [address] [place] [address] Performed By: #### I NFTBP #### [facility] CLIA [id number] [address] [place] [address] [place] HBV surface Ag Ser Qlon 04-18 HBV surface Ag Ql (S) Negative Normal Negative [facility] Comment on above: Order Comment: Speci men Type: BLOOD SPECIMEN Ordering Facility: [facility] Address: [address] [place] [address] Performed By: #### 5 195-3 #### [facility] CLIA [id number] [address] [place] [address] [place] CBC panel Auto (Bld)on 02-05 Erythrocyte distribution width (RBC) [Ratio] 15.7 % High 11.5-15.0 [facility] Comment on above: Order Comment: Speci men Type: BLOOD SPECIMEN Ordering Facility: [facility] Address: [address] [place] [address] Performed By: #### 5 8410-2 #### [facility] CLIA [id number] [facility] [place] [address] [place] Hematocrit (Bld) [Volume fraction] 51.0 % Normal 39.0-51.0 [facility] Comment on above: Order Comment: Speci men Type: BLOOD SPECIMEN Ordering Facility: [facility] Address: [address] [place] [address] Performed By: #### 5 8410-2 #### [facility] CLIA [id number] [address] [place] [address] [place] Hemoglobin (Bld) [Mass/Vol] 16.4 g/dL Normal 13.0-17.0 [facility] Comment on above: Order Comment: Speci men Type: BLOOD SPECIMEN Ordering Facility: [facility] Address: [address] [place] [address] Performed By: #### 5 8410-2 #### [facility] CLIA [id number] [address] [place] [address] [place] MCH (RBC) [Entitic mass] 28.7 pg Normal 26.0-34.0 [facility] Comment on above: Order Comment: Speci men Type: BLOOD SPECIMEN Ordering Facility: [facility] Address: [address] [place] [address] Performed By: #### 5 8410-2 #### [facility] CLIA [id number] [address] [place] [address] [place] MCHC (RBC) [Mass/Vol] 32.2 g/dL Normal 30.5-36.0 [facility] Comment on above: Order Comment: Speci men Type: BLOOD SPECIMEN Ordering Facility: [facility] Address: [address] [place] [address] Performed By: #### 5 8410-2 #### [facility] CLIA [id number] [address] [place] [address] [place] MCV (RBC) [Entitic vol] 89.3 fL Normal 80.0-100.0 [facility] Comment on above: Order Comment: Speci men Type: BLOOD SPECIMEN Ordering Facility: [facility] Address: [address] [place] [address] Performed By: #### 5 8410-2 #### [facility] CLIA [id number] [address] [place] [address] [place] Nucleated RBC (Bld) [#/Vol] 10*3/uL Normal <0.01 [facility] Comment on above: Order Comment: Speci men Type: BLOOD SPECIMEN Ordering Facility: [facility] Address: [address] [place] [address] Performed By: #### 5 8410-2 #### [facility] CLIA [id number] [address] [place] [address] [place] Platelet mean volume (Bld) [Entitic vol] 10.6 fL Normal 9.0-12.7 [facility] Comment on above: Order Comment: Speci men Type: BLOOD SPECIMEN Ordering Facility: [facility] Address: [address] [place] [address] Performed By: #### 5 8410-2 #### [facility] CLIA [id number] [address] [place] [address] [place] Platelets (Bld) [#/Vol] 300 10*3/uL Normal 150-400 [facility] Comment on above: Order Comment: Speci men Type: BLOOD SPECIMEN Ordering Facility: [facility] Address: [address] [place] [address] Performed By: #### 5 8410-2 #### [facility] CLIA [id number] [address] [place] [address] [place] RBC (Bld) [#/Vol] 5.71 10*6/uL Normal 4.20-6.00 [facility] Comment on above: Order Comment: Speci men Type: BLOOD SPECIMEN Ordering Facility: [facility] Address: [address] [place] [address] Performed By: #### 5 8410-2 #### [facility] CLIA [id number] [address] [place] [address] [place] WBC (Bld) [#/Vol] 10.29 10*3/uL Normal 3.70-11.00 [facility] Comment on above: Order Comment: Speci men Type: BLOOD SPECIMEN Ordering Facility: [facility] Address: [address] [place] [address], [place] [address] Performed By: #### 5 8410-2 #### [facility] CLIA [id number] [address] [place] [address] [place] Comprehensive metabolic 2000 panelon 02-05-2023 Albumin [Mass/Vol] 4.2 g/dL Normal 3.9-4.9 [facility] Comment on above: Order Comment: Speci men Type: BLOOD SPECIMEN Ordering Facility: [facility] Address: [address] [place] [address], [place] [address] Performed By: #### 2 4331-1, 96239-6 #### [facility] CLIA [id number] [address] [place] [address] [place] ALP [Catalytic activity/Vol] 88 U/L Normal 38-113 [facility] Comment on above: Order Comment: Speci men Type: BLOOD SPECIMEN Ordering Facility: [facility] Address: [address] [place] [address], [place] [address] Performed By: #### 2 4331-1, 03070-0 #### [facility] CLIA [id number] [address] [place] [address] [place] ALT [Catalytic activity/Vol] 20 U/L Normal 10-54 [facility] Comment on above: Order Comment: Speci men Type: BLOOD SPECIMEN Ordering Facility: [facility] Address: [address] [place] [address], [place] [address] Performed By: #### 2 4331-1, 93857-6 #### [facility] CLIA [id number] [address] [place] [address] [place] Anion gap [Moles/Vol] 14 mmol/L Normal 9-18 [facility] Comment on above: Order Comment: Speci men Type: BLOOD SPECIMEN Ordering Facility: [facility] Address: [address] [place] [address], [place] [address] Performed By: #### 2 4331-1, 37710-0 #### [facility] CLIA [id number] [address] [place] [address] [place] AST [Catalytic activity/Vol] 23 U/L Normal 14-40 [facility] Comment on above: Order Comment: Speci men Type: BLOOD SPECIMEN Ordering Facility: [facility] Address: [address] [place] [address], [place] [address] Performed By: #### 2 4331-1, #### [facility] CLIA [id number] [address] [place] [address] [place] Bilirubin [Mass/Vol] 0.5 mg/dL Normal 0.2-1.3 [facility] Comment on above: Order Comment: Speci men Type: BLOOD SPECIMEN Ordering Facility: [facility] Address: [address] [place] [address], [place] [address] Performed By: #### 2 4331-1, 07662-0 #### [facility] CLIA [id number] [address] [place] [address] [place] Calcium [Mass/Vol] 10.2 mg/dL Normal 8.5-10.2 [facility] Comment on above: Order Comment: Speci men Type: BLOOD SPECIMEN Ordering Facility: [facility] Address: [address] [place] [address], [place] [address] Performed By: #### 2 4331-1, 03368-2 #### [facility] CLIA [id number] [address] [place] [address] [place] Chloride [Moles/Vol] 100 mmol/L Normal 97-105 [facility] Comment on above: Order Comment: Speci men Type: BLOOD SPECIMEN Ordering Facility: [facility] Address: [address] [place] [address], [place] [address] Performed By: #### 2 4331-1, 66218-5 #### [facility] CLIA [id number] [address] [place] [address] [place] CO2 [Moles/Vol] 26 mmol/L Normal 22-30 [facility] Comment on above: Order Comment: Soren piña Type: BLOOD SPECIMEN Ordering Facility: [facility] Address: [address] [place] [address] Performed By: #### 2 4331-1, 71221-8 #### [facility] CLIA [id number] [address] [place] [address] [place] Creatinine [Mass/Vol] 1.10 mg/dL Normal 0.73-1.22 [facility] Comment on above: Order Comment: Soren piña Type: BLOOD SPECIMEN Ordering Facility: [facility] Address: [address] [place] [address] Performed By: #### 2 4331-1, 65843-2 #### [facility] CLIA [id number] [address] [place] [address] STATES OF [facility] ESTIMATED GLOMERULAR FILTRATION RATE 75 mL/min/1.73m??? Normal >=60 [facility] Comment on above: Order Comment: Soren piña Type: BLOOD SPECIMEN Ordering Facility: [facility] Address: [address] [place] [address] Result Comment: Deisy mated Glomerular Filtration Rate (eGFR) is calculated using the 2020 CKD-EPI creatinine equation. This equation utilizes serum creatinine, sex, and age as parameters. The creatinine assay has traceable calibration to isotope dilution-mass spectrometry. Refer to KDIGO guidelines for clinical interpretation. In patients with unstable renal function, e.g. those with acute kidney injury, the eGFR may not accurately reflect actual GFR. Performed By: #### 2 4331-1, 01910-9 #### [facility] CLIA [id number] [address] [place] [address] [place] Glucose [Mass/Vol] 114 mg/dL High 74-99 [facility] Comment on above: Order Comment: Soren piña Type: BLOOD SPECIMEN Ordering Facility: [facility] Address: [address] [place] [address] Result Comment: The [place] Diabetes Association (ADA) provides guidance for cutoff values for fasting glucose and random glucose. The ADA defines fasting as no caloric intake for at least 8 hours. Fasting plasma glucose results between 100 to 125 mg/dL indicate increased risk for diabetes (prediabetes). Fasting plasma glucose results greater than or equal to 126 mg/dL meet the criteria for diagnosis of diabetes. In the absence of unequivocal hyperglycemia, results should be confirmed by repeat testing. In a patient with classic symptoms of hyperglycemia or hyperglycemic crisis, random plasma glucose results greater than or equal to 200 mg/dL meet the criteria for diagnosis of diabetes. Reference: Standards of Medical Care in Diabetes 2016, Spanish Diabetes Association. Diabetes Care. 2016.39(Suppl 1). Performed By: #### 2 4331-1, 68270-3 #### [facility] CLIA [id number] [address] [place] [address] [place] Potassium [Moles/Vol] 3.7 mmol/L Normal 3.7-5.1 [facility] Comment on above: Order Comment: Speci men Type: BLOOD SPECIMEN Ordering Facility: [facility] Address: [address] [place] [address] Performed By: #### 2 4331-1, 89276-3 #### [facility] CLIA [id number] [address] [place] [address] [place] Protein [Mass/Vol] 7.6 g/dL Normal 6.3-8.0 [facility] Comment on above: Order Comment: Speci men Type: BLOOD SPECIMEN Ordering Facility: [facility] Address: [address] [place] [address] Performed By: #### 2 4331-1, 59401-9 #### [facility] CLIA [id number] [address] [place], [place] [address] [place] Sodium [Moles/Vol] 140 mmol/L Normal 136-144 [facility] Comment on above: Order Comment: Speci men Type: BLOOD SPECIMEN Ordering Facility: [facility] Address: [address] [place] [address], [place] [address] Performed By: #### 2 4331-1, 81159-2 #### [facility] CLIA [id number] [address] [place] [address] [place] Urea nitrogen [Mass/Vol] 20 mg/dL Normal 9-24 [facility] Comment on above: Order Comment: Floridai men Type: BLOOD SPECIMEN Ordering Facility: [facility] Address: [address] [place] [address] Performed By: #### 2 4331-1, 71207-1 #### [facility] CLIA [id number] [address] [place] [address] [place] HbA1c (Bld)on 02-05-2023 Average glucose Estimated from glycated hemoglobin (Bld) [Mass/Vol] 117 mg/dL Normal [facility] Comment on above: Order Comment: Soren [facility] Type: BLOOD SPECIMEN Ordering Facility: [facility] Address: [address] [place] [address] Result Comment: eAG: (Estimated average glucose) is a calculated value from HgbA1c and is sales representative [employer] of the average blood glucose level in the last 2-3 month period. Performed By: #### 5 5454-3 #### [facility] CLIA [id number] [address] [place] [address] [place] HbA1c (Bld) [Mass fraction] 5.7 % High 4.3-5.6 [facility] Comment on above: Order Comment: Floridai [facility] Type: BLOOD SPECIMEN Ordering Facility: [facility] Address: [address] [place] [address] Result Comment: Amer [place] Diabetes Association guidelines indicate that patients with HgbA1c in the range 5.7-6.4% are at increased risk for development of diabetes, and intervention by lifestyle modification may be beneficial. HgbA1c greater or equal to 6.5% is considered diagnostic of diabetes. Performed By: #### 5 5454-3 #### [facility] CLIA [id number] [address] [place] [address] [place] Lipid 1996 panelon 3 Cholesterol [Mass/Vol] 90 mg/dL Normal <200 [facility] Comment on above: Order Comment: Speci men Type: BLOOD SPECIMEN Ordering Facility: [facility] Address: [address] [place] [address], [place] [address] Result Comment: <200 mg/dL, Desirable 200-239 mg/dL, Borderline high >239 mg/dL, High Performed By: #### 2 4331-1, 16614-2 #### [facility] CLIA [id number] [address] [place] [address] [place] Cholesterol in HDL [Mass/Vol] 26 mg/dL Low >39 [facility] Comment on above: Order Comment: Speci men Type: BLOOD SPECIMEN Ordering Facility: [facility] Address: [address] [place] [address], [place] [address] Result Comment: 40-5 9 mg/dL, Acceptable >59 mg/dL, High: Negative risk factor for coronary heart disease <40 mg/dL, Low: Positive risk factor for coronary heart disease Performed By: #### 2 4331-1, 49806-4 #### [facility] CLIA [id number] [address] [place] Cholesterol in LDL [Mass/Vol] 32 mg/dL Normal <100 [facility] Comment on above: Order Comment: Speci men Type: BLOOD SPECIMEN Ordering Facility: [facility] Address: [address] [place] [address], [place] [address] Result Comment: <100 mg/dL, Optimal 100-129 mg/dL, Near optimal/above optimal 130-159 mg/dL, Borderline high 160-189 mg/dL, High >189 mg/dL, Very high Secondary prevention optimal LDL Cholesterol levels are recommended to be < 70 mg/dL Performed By: #### 2 4331-1, 70562-5 #### [facility] CLIA [id number] [address] [place] Cholesterol in LDL/Cholesterol in HDL [Mass ratio] 1.23 {ratio} Normal <2.54 [facility] Comment on above: Order Comment: Soren piña Type: BLOOD SPECIMEN Ordering Facility: [facility] Address: [address] [place] [address], [place] [address] Result Comment: Audi ramirez: 1. National Cholesterol Education Program ATP III Guideline At-A-Glance Quick Desk Reference: National Heart, Lung, and Blood Corrigan. National Institutes of Health. 2001: NIH Publication No. 01-3305. 2. An International Atherosclerosis Society position paper: global recommendations for the management of dyslipidemia: executive summary, Atherosclerosis. 2014: 232(2):410-413. Performed By: #### 2 4331-1, 49891-3 #### [facility] CLIA [id number] [facility] [address] STATES [facility] Cholesterol in VLDL [Mass/Vol] 32 mg/dL High <30 [facility] Comment on above: Order Comment: Soren ayana Type: BLOOD SPECIMEN Ordering Facility: [facility] Address: [address] [place] [address] Performed By: #### 2 4331-1, 69537-3 #### [facility] CLIA [id number] [address] Cholesterol non HDL [Mass/Vol] 64 mg/dL Normal <130 [facility] Comment on above: Order Comment: Soren ayana Type: BLOOD SPECIMEN Ordering Facility: [facility] Address: [address] [place] [address], [place] [address] Result Comment: <130 mg/dL, Optimal 130-159 mg/dL, Near optimal/above optimal 160-189 mg/dL, Borderline high 190-219 mg/dL, High >219 mg/dL, Very high Secondary prevention optimal non HDL Cholesterol levels are recommended to be <100 mg/dL Performed By: #### 2 4331-1, 53361-6 #### [facility] CLIA [id number] [address] [place] Cholesterol.total /Cholesterol in HDL [Mass ratio] 3.46 {ratio} Normal <5.10 [facility] Comment on above: Order Comment: Speci men Type: BLOOD SPECIMEN Ordering Facility: [facility] Address: [address] [place] [address] Performed By: #### 2 4331-1, 85388-7 #### [facility] CLIA [id number] [address] [place] [address] OF [facility] FASTING TIME 12 hrs Normal [facility] Comment on above: Order Comment: Speci men Type: BLOOD SPECIMEN Ordering Facility: [facility] Address: [address] [place] [address] Performed By: #### 2 4331-1, 73768-5 #### [facility] CLIA [id number] [address] [place] [address] [place] Triglyceride [Mass/Vol] 158 mg/dL High <150 [facility] Comment on above: Order Comment: Speci men Type: BLOOD SPECIMEN Ordering Facility: [facility] Address: [address] [place] [address], [place] [address] Result Comment: <150 mg/dL, Normal 150-199 mg/dL, Borderline high 200-499 mg/dL, High >499 mg/dL, Very high Performed By: #### 2 4331-1, 36523-5 #### [facility] CLIA [id number] [address] [place] [address] [place] PSA/PROSTSPECAG SCRNon 02-05 Prostate specific Ag [Mass/Vol] 11.29 ng/mL High <2.60 [facility] Comment on above: Order Comment: Speci men Type: BLOOD SPECIMEN Ordering Facility: [facility] Address: [address] [place] [address] Result Comment: Tota l PSA test methodology used is the Electrochemiluminescence Immunoassay by [employer]. Total PSA values by differing methodologies cannot be interchanged. For an individual patient, the significance of a PSA level should be interpreted in a broad clinical context, including age, race, family history, digital rectal exam, prostate size, results of prior testing (prostate biopsy, free PSA, PCA3), and use of 5-alpha reductase inhibitors. Considering the high incidence of asymptomatic cancer in the general population that may not pose an ultimate risk to a patient, the decision to recommend urological evaluation or prostate biopsy should be individualized after consideration of all these factors. REFERENCE: Lucie Guzman M.D., M.P.H., Tima Prater M.D., Ph.D., Sonido Courtney M.D., Roxane Dolan, M.P.H., Yady León Sc.D. Effect of Verification Bias on Screening for Prostate Cancer by Measurement of Prostatic Specific Antigen. N Engl J Med 2003,349:335-42. Performed By: #### P SAS1 #### [facility] CLIA [id number] [address] [place] [address] Telephone Encounteron 2021 [employer] Technician Authentication Interface Message Text Phone call to pt, Identification was verified by patient verbalizing his name and date of . DOT physical scheduled. Pt will double check schedule and if he needs to change appt he will call clinic. Nothing further needed at this time. Closing. Normal [facility] [employer] Telephone Encounteron 2021 Radio Electronics Technician Authentication Interface Message Text Phone call to pt, per recording the mailbox is full and cannot accept any new messages. Phone call to pt's , per recording the 's mailbox is also full and cannot accept any messages at this time. Will need to try reaching later. Normal [employer] Technician Authentication Interface Message Text Situation: Requesting DOT physical Appt Background: calling to schedule pt with provider was pt at [facility] it's time to have pt's DOT physical as soon as possible Assessment: advise Recommendation: Please call either Maryana at [phone] or pt at [phone] to schedule Normal [employer] [facility] VL Aorta Iliac Duplexon 03-17 VL Aorta Iliac Duplex Patient Name: BRADFORD HOOKS Ultrasound Exam Date/Time 03/31/2019 08:50:40 EDT Exam VL Aorta Iliac Duplex Ordering Physician MD BERNAL JOHN MICHAEL Accession Number [id number] CPT4 Codes 19947 () Reason For Exam AAA Report [facility] [place] --- Abdominal Aortic Duplex Report Patient Name: Bradford Hooks : 1960 (58yrs) Study Date: 03/31/2019 Age: 58 Account: [id number] Gender: M Loc: BP: Ordering: Sophie Bernal Technologist: Ordering Physician: Sophie Bernal In School Suspension Aide: Lexii Perez Interpreting Physician: Narciso White --- Location: [facility] --- INDICATIONS: Atherosclerosis of aorta. PVD --- CONCLUSIONS 1. Normal aorto iliac duplex --- IMPRESSIONS: - Aorta patent, normal caliber - Bilateral iliac arteries patent, normal caliber --- HISTORY: Risk factors: Current tobacco use. Hypertension. --- STUDY DATA: Abdominal aorta duplex. Birthdate: Patient birthdate: 1960. Age: Patient is 58 yr old. Sex: Gender: male. Ethnicity: Ethnicity: white. Doppler flow study including spectral analysis, color and mcduffie scale imaging. Patient status: Outpatient. Procedure: A vascular evaluation was performed. The images were obtained using a readfy E9 vascular ultrasound machine. This study was technically limited due to body habitus and bowel gas. --- Arterial flow: + +--------+- -----+-------+ +-- +--------- --+ !Location !V sys !V ed !AP cm !Transverse!Comment !Long axis ! ! ! ! ! ! ! !AP ! + +--------+- -----+-------+ +-- +--------- --+ !Abd aorta - !58 cm/s !0 cm/s!2.01 cm!1.82 cm ! !1 cm ! !prox ! ! ! ! ! ! ! + +--------+- -----+-------+ +-- +--------- --+ !Abd aorta - mid!55 cm/s !13 !1.56 cm!1.75 cm ! !1.7 cm ! ! ! !cm/s ! ! ! ! ! + +--------+- -----+-------+ +-- +--------- --+ !Abd aorta - !43 cm/s !0 cm/s!1.69 cm!1.85 cm ! !1.8 cm ! !distal ! ! ! ! ! ! ! + +--------+- -----+-------+ +-- +--------- --+ !Right common !101 cm/s!0 cm/s!1.43 cm!1.43 cm ! !--------- --! !iliac ! ! ! ! ! ! ! + +--------+- -----+-------+ +-- +--------- --+ !Right internal !--------!------!-------!-- --------!Not !--------- --! !iliac ! ! ! ! !visualized. ! ! + +--------+- -----+-------+ +-- +--------- --+ !Right external !75 cm/s !0 cm/s!-------! !--- !--------- --! !iliac ! ! ! ! ! ! ! + +--------+- -----+-------+ +-- +--------- --+ !Left common !--------!------!1.37 cm!1.22 cm ! !--------- --! !iliac ! ! ! ! ! ! ! + +--------+- -----+-------+ +-- +--------- --+ !Left internal !--------!------!-------!-- --------!Not !--------- --! !iliac ! ! ! ! !Visualized. ! ! + +--------+- -----+-------+ +-- +--------- --+ !Left external !148 cm/s!19 !-------! !------- ------!--------- --! !iliac ! !cm/s ! ! ! ! ! + +--------+- -----+-------+ +-- +--------- --+ Electronically signed by: Narciso White [id number] Final Dictated: 03/31/2019 11:38 am Dictating Physician: NARCISO WHITE Signed Date and Time: 03/31/2019 11:38 am Signed by: NARCISO WHITE [facility] VL PVR Arterial Doppler Lowe r w/ Exercison 09-16-2018 VL PVR Arterial Doppler Lower w/ Exercis Patient Name: BRADFORD HOOKS Ultrasound Exam Date/Time 09/16/2018 08:08:39 EST Exam VL PVR Arterial Doppler Lwr w/ Exercise Ordering Physician MD BERNAL JOHN MICHAEL Accession Number [id number] CPT4 Codes 36571 () Reason For Exam Peripheral vascular disease, unspecified Report [facility] [place] --- Multilevel Lower Extremity Arterial Evaluation with Exercise Patient Name: Bradford Hooks : 1960 (57yrs) Study Date: 09/16/2018 Age: 57 Account: [id number] Gender: M Loc: BP: Ordering: Sophie Bernal Technologist: Ordering Physician: Sophie Bernal In [employer] Suspension Aide: Margot Ferreira Interpreting Physician: Sophie Santiago MD --- Location: [facility] --- INDICATIONS: Claudication. Peripheral vascular diasease unspecified. Right GALILEA stenting 2014. --- CONCLUSIONS 1. Right resting OMAIRA is 0.8 and TBI is 0.6. Post-exercise OMAIRA is 0.4. Segmental pressures and waveforms show moderate arterial insufficiency. Study shows moderate arterial insufficiency with exercise involving iliofemoral vasculature in the right leg The right lower extremity shows an abnormal response to exercise. Left OMAIRA is 1.1 - This is within the normal range. The left lower extremity shows a normal response to exercise. --- IMPRESSIONS: - Right resting OMAIRA is 0.8 and TBI is 0.6. Post-exercise OMAIRA is 0.4. Segmental pressures and waveforms show moderate arterial insufficiency. - Left resting OMAIRA is 1.1 and TBI is 0.8. Post-exercise OMAIRA is 1.1. - Study shows moderate arterial insufficiency with exercise involving iliofemoral vasculature in the right leg - Left OMAIRA is 1.1 - This is within the normal range. - Right great toe index is abnormal. - PVR waveforms show attenuation at the level of the right high thigh. - The right lower extremity shows an abnormal response to exercise. - There appears to be a normal toe index of the left great toe. - PVR waveforms of the left leg appear normal at rest. - The left lower extremity shows a normal response to exercise. --- HISTORY: Risk factors: Current tobacco use. Hypertension. --- STUDY DATA: Lower extremity multilevel physiologic evaluation with exercise. Birthdate: Patient birthdate: 1960. Age: Patient is 57 yr old. Sex: Gender: male. Ethnicity: Ethnicity: white. Pressure measurement and pulse volume recording. Patient status: Outpatient. Procedure: A vascular evaluation was performed. The images were obtained using a [employer] 2100 vascular ultrasound machine. Stress arterial Doppler test was performed. The patient ambulated on the treadmill at an incline of 10degreesat 1.5 mph. Post exercise measurements were recorded. The patient exercised for 3 min. The patient complained of moderate pain. Reason for stopping: right calf pain. Pre and post exercise measurements were recorded. --- PVR / Doppler waveforms: + +---------+- ----+ !Segment !Pressure !Index! + +---------+- ----+ !R brachial !158 mm Hg!-----! + +---------+- ----+ !R thigh - high!128 mm Hg!0.81 ! + +---------+- ----+ !R thigh - low !114 mm Hg!0.72 ! + +---------+- ----+ !R calf !116 mm Hg!0.73 ! + +---------+- ----+ !R DP !120 mm Hg!0.76 ! + +---------+- ----+ !R PT !108 mm Hg!0.68 ! + +---------+- ----+ !R great toe !94 mm Hg !0.59 ! + +---------+- ----+ !L brachial !144 mm Hg!-----! + +---------+- ----+ !L DP !150 mm Hg!0.95 ! + +---------+- ----+ !L PT !177 mm Hg!1.12 ! + +---------+- ----+ !L great toe !128 mm Hg!0.81 ! + +---------+- ----+ OMAIRA and Stress Table: Baseline Post-exercise R DP 120 72 L PT 177 178 R Brachial 158 165 ------ R OMAIRA .76 .44 L OMAIRA 1.12 1.08 Electronically signed by: Sophie Santiago MD [id number] Final Dictated: 09/17/2018 4:08 am Dictating Physician: SOPHIE SANTIAGO Signed Date and Time: 09/17/2018 4:07 am Signed by: SOPHIE SANTIAGO [facility] Vital Signs Date Time Vital Sign Value Performing Clinician Faci lity 01-08-2023 13:27-0400 Body height 165.1 cm Narciso Huntley MD Work Phone: [facility] 01-08-2023 13:27-0400 Body mass index (BMI) [Ratio] 33.95 kg/m2 Narciso Huntley MD Work Phone: [facility] 01-08-2023 13:27-0400 Body temperature 98.49 [degF] Narciso Huntley MD Work Phone: [facility] 01-08-2023 13:27-0400 Body weight 92.53 kg Narciso Huntley MD Work Phone: [facility] Encounters Encounter Date Encounter Type Care Provider Facility Start: 05-09-2024 End: 05-09-2024 ambulatory Neftali CANALES Facility:[facility] Start: 03-13-2024 End: 03-13-2024 ambulatory Darnell Marie VSAisha Facility:[facility] Start: 01-08-2023 End: 01-08-2023 ambulatory SOPHIE BERNAL [facility] Start: 01-08-2023 End: 01-08-2023 Office outpatient new 30 minutes Narciso Huntley MD Work Phone: [facility] Comment on above: Perforated tympanic membrane, left (Primary Dx); Conductive hearing loss of left ear with unrestricted hearing of right ear; Acute suppr otitis media w/o spon rupt ear drum, left ear Start: 04-07-2022 Telephone encounter Sophie Bernal MD Work Phone: [facility] Comment on above: Requesting DOT physi estelita Appt Plan of Treatment Date Care Activity Detail Author Start: 05-18-2023 Influenza vaccination Sequential Influenza Vaccine (Season Ended) [facility] Start: 04-09-2023 End: 04-09-2023 Patient encounter procedure 04/09/2023 8:00 AM EDT Office Visit [facility] [address] [place] [address] Narciso Huntley MD [address] [place] [id number] [facility] Start: 06-17-2022 Influenza vaccination Influenza Vaccine (#1) [facility] Start: 04-19-2022 End: 04-19-2022 Patient encounter procedure 04/19/2022 Office Visit Family Practice Sophie Bernal MD [address] [place] [address] [facility] Start: 12-28-2021 Tetanus vaccination Tetanus: Every 10yrs [facility] Start: 01-15-2020 History and physical examination, annual for health maintenance Wellness Visit [facility] Start: 2008 Administration of herpes zoster vaccine Zoster Vaccines (1 of 2) [facility] Start: 2008 Measurement of occult blood in single stool specimen FIT [facility] Start: 2008 Screening for malignant neoplasm of colon [facility] Start: 2008 Shingles (RZV) Vaccine (1 of 2) Shingles (RZV) Vaccine (1 of 2) [facility] Start: 1993 Lipid panel Cholesterol [facility] Start: 1976 Hepatitis C screening [facility] Start: 1976 Tetanus + diphtheria + acellular pertussis vaccine (product) Tdap Booster [facility] Start: 1973 HIV screening [facility] Start: 1970 Depression screening using PHQ-9 (Patient Health Questionnaire 9) score Depression Screening (PHQ-2/9) [facility] Start: 04-13-1959 COVID-19 Vaccine (#1) COVID-19 Vaccine (#1) [facility] Start: 1960 Prostate specific antigen measurement PSA Level [facility] Start: 1960 Screening for malignant neoplasm of colon [facility] Payers Date Payer Category Payer Medicare [id number] 2024 Self-pay 2013 Unknown [employer] BLUE CROSS/HMO,PPO,POS [id number] 2013-Present 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 [facility] Start: 1960 [facility]: 01-08-2023 Tobacco smoking status NHIS Smokes t obacco daily [facility] History of tobacco use [facility]igarette [facility] Start: 01-08-2023 Cigarettes smoked cu rrent (pack per day) - Reported 2 [facility] Start: 01-08-2023 Tobacco use and exposure Smokeless t obacco non-user [facility] Start: 01-08-2023 Alcohol intake Lifetime non-d chandra (finding) [facility] Gender identity Not on file [facility] Start: 12-29-2022 End: 01-08-2023 Exposure to SARS-CoV-2 (event) Not sure [facility] History of Present illness Narrative 01-08-2023 Narciso Huntley MD - 01/08/2023 1:40 PM EDTLaura Miranda MA - 01/08/2023 1:24 PM EDT Note Date & Type Note Facility 01-08-2023 History of Presen t illness Narrative [facility] [address] [facility] [place] [address] [facility] [address] Dept: [phone] MD Bradford Arvizu 62 y.o. male Patient presents with a chief complaint of Consult (Hole in Eardrum) Temp 98.5 F (36.9 C) Ht 5' 5 Wt 92.5 kg (204 lb) BMI 33.95 kg/m History of Presenting Illness: The patient/caregiver reports a history of complaint with the following features: Onset: started many years ago Timing: comes and goes Duration: many years Quality: ear pain with water exposure, ear discharge for over a month Location: left ear Severity: pain mild, reduced hearing Risk factors: welding slag in ear in past Alleviating factors: water precautions Aggravating factors: water exposure to ear Associated factors: reduced hearing, worsening, off balance He reports that his hearing loss is interfering with his work and keeping water out of the ear in outdoor environments has been difficult. Review of systems covering 10 systems is reviewed and pertinent positives and negatives are noted as above. Past Medical History: Diagnosis Date COPD (chronic obstructive pulmonary disease) (HCC) Emphysema of lung (HCC) History of kidney cancer Hyperlipidemia Hypertension Hypogonadism in male PAD (peripheral artery disease) (HCC) Pulmonary embolism (HCC) Current Outpatient Medications: allopurinoL (ZYLOPRIM) 100 MG tablet, Take 1 (one) tablet (100 mg total) by mouth daily ., Disp: , Rfl: apixaban (ELIQUIS) 5 mg Tab, Take 1 (one) tablet (5 mg total) by mouth 2 (two) times a day ., Disp: , Rfl: apremilast (Otezla) 30 mg Tab, Take 1 (one) tablet (30 mg total) by mouth 2 (two) times a day ., Disp: , Rfl: atorvastatin (LIPITOR) 40 MG tablet, Take 1 (one) tablet (40 mg total) by mouth daily ., Disp: , Rfl: carvediloL (COREG) 25 MG tablet, Take 1 (one) tablet (25 mg total) by mouth 2 (two) times a day ., Disp: , Rfl: clopidogreL (PLAVIX) 75 mg tablet, Take 1 (one) tablet (75 mg total) by mouth daily ., Disp: , Rfl: gabapentin (NEURONTIN) 100 MG capsule, TAKE 1 CAPSULE IN THE MORNING DAILY, Disp: , Rfl: gabapentin (NEURONTIN) 300 MG capsule, Take by mouth nightly ., Disp: , Rfl: hydroCHLOROthiazide (HYDRODIURIL) 25 MG tablet, Take 1 (one) tablet (25 mg total) by mouth daily ., Disp: , Rfl: ibuprofen (ADVIL,MOTRIN) 800 MG tablet, Take 1 (one) tablet (800 mg total) by mouth 3 (three) times a day ., Disp: , Rfl: pentoxifylline (TRENTal) 400 mg CR tablet, Take 1 (one) tablet (400 mg total) by mouth 3 (three) times a day with meals ., Disp: , Rfl: secukinumab (Cosentyx, 2 Syringes,) 150 mg/mL Syrg, Inject 2 mL (300 mg total) under the skin ., Disp: , Rfl: tiZANidine (ZANAFLEX) 4 MG capsule, 1 tab by mouth at bedtime as needed for back pain/muscle spasm, Disp: , Rfl: ciprofloxacin-dexamethasone (CIPRODEX) otic suspension, Administer 4 (four) drops into the left ear 2 (two) times a day ., Disp: 7.5 mL, Rfl: 0 Allergies Allergen Reactions Aspirin Shortness Of Breath Doxycycline GI Intolerance Past Surgical History: Procedure Laterality Date APPENDECTOMY NEPHRECTOMY PARTIAL Right Social History Socioeconomic History Marital status: Tobacco Use Smoking status: Every Day Packs/day: 2.00 Years: 50.00 Pack years: 100.00 Types: Cigarettes Smokeless tobacco: Never Substance and Sexual Activity Alcohol use: Never Drug use: Never Family History Problem Relation Age of Onset COPD Mother PHYSICAL EXAM: The patient was examined today 01/08/2023 with findings as follows: CONSTITUTIONAL: General Appearance: well-appearing, nontoxic, alert, no acute distress Communication: normal voicing, hearing intact to spoken voice HEAD/FACE: Head: atraumatic, normocephalic, no lesions Facial Inspection: no lesions, healthy skin Facial Strength: motor strength normal, symmetric strength, symmetric movement EYES: Pupils: PERRLA, extra-ocular movements intact, no nystagmus, sclera white, no redness of eyes, no watering of eyes EARS: Bilateral External Ears: no pits, no tags Right External Ear: normally formed, no lesions, no mastoid tenderness Left External Ear: normally formed, no lesions, no mastoid tenderness Right External Auditory Canal: normal, healthy skin, no obstructing cerumen, no discharge Left External Auditory Canal: normal, healthy skin, no obstructing cerumen, no discharge Right Tympanic Membrane: normal landmarks, translucent, no perforation Left Tympanic Membrane: normal landmarks, translucent, large anterior perforation with some purulent material Hearing: intact to spoken voice, Kaur lateralizes left, Rinne AC>BC bilaterally NECK: Neck: no masses, trachea midline, normal range of motion, no cysts or pits, no tenderness to palpation LYMPH NODES: Cervical: no palpable lymph node enlargement SKIN: General Appearance: no lesions, warm and dry, normal turgor, no bruising PSYCHIATRIC: Mood and affect: normal mood, normal affect Assessment and Plan: He has a large left tympanic perforation with a classic welding slag initiating event. This has resulted in recurrent discharge and pain after water exposure. He appears to have a conducive hearing loss as well on that side. I do feel that he would benefit from repair, although this is limited due to lack of insurance coverage at this time. He is not affiliated with the [facility] and would not be eligable for Medicaid, but I have offered that he may apply for the financial assistance program through [facility] if he would like to consider this further. He may also benefit through [employer] for assistance. 1. Perforated tympanic membrane, left 2. Conductive hearing loss of left ear with unrestricted hearing of right ear 3. Acute suppr otitis media w/o spon rupt ear drum, left ear ciprofloxacin-dexamethasone (CIPRODEX) otic suspension No follow-ups on file. The patient and/or caregiver is to notify the office if no improvement or worsening of symptoms is noted prior to the scheduled follow-up for sooner evaluation. The patient and/or caregiver is able to state an understanding of these recommendations and is agreeable to the treatment plan. --Narciso Huntley MD on 01/08/2023 at 2:07 PM An electronic signature was used to authenticate this note. Review of Systems Constitutional: Positive for fatigue. HENT: Positive for ear discharge, ear pain, hearing loss and sneezing. Eyes: Positive for redness. Respiratory: Positive for cough. Cardiovascular: Positive for leg swelling. Gastrointestinal: Negative. Genitourinary: Negative. Musculoskeletal: Negative. Skin: Negative. Allergic/Immunologic: Positive for environmental allergies. Neurological: Positive for weakness and headaches. Hematological: Negative. Psychiatric/Behavioral: Negative. documented in this encounter [facility] Telephone encounter Note 04-11-2022 Telephone Encounter - Laura Hernandez RN - 04/11/2022 11:52 AM EDT Note Date & Type Note Facility 04-11-2022 Telephone encount er Note Phone call to pt, Identification was verified by patient verbalizing his name and date of . DOT physical scheduled. Pt will double check schedule and if he needs to change appt he will call clinic. Nothing further needed at this time. Closing. [facility] Note 04-11-2022 Telephone Encounter - Laura Hernandez RN - 04/11/2022 11:52 AM EDTTelephone Encounter - Laura Hernandez RN - 04/07/2022 11:24 AM EDT Note Date & Type Note Facility 04-11-2022 Miscellaneous Notes Formattin g of this note might be different from the original. Phone call to pt, Identification was verified by patient verbalizing his name and date of . DOT physical scheduled. Pt will double check schedule and if he needs to change appt he will call clinic. Nothing further needed at this time. Closing. Phone call to pt, per recording the mailbox is full and cannot accept any new messages. Phone call to pt's , per recording the 's mailbox is also full and cannot accept any messages at this time. Will need to try reaching later. Situation: Requesting DOT physical Appt Background: calling to schedule pt with provider was pt at [facility] it's time to have pt's DOT physical as soon as possible Assessment: advise Recommendation: Please call either Maryana at [phone] or pt at [phone] to schedule documented [facility] Note 04-07-2022 Telephone Encounter - Laura Hernandez RN - 04/07/2022 11:24 AM EDT Note Date & Type Note Facility 04-07-2022 Telephone encounter Note Form atting of this note might be different from the original. Phone call to pt, per recording the mailbox is full and cannot accept any new messages. Phone call to pt's , per recording the 's mailbox is also full and cannot accept any messages at this time. Will need to try reaching later. [facility] Telephone encounter Note 04-07-2022 Telephone Encounter - Janel Tracy - 04/07/2022 10:41 AM EDT Note Date & Type Note Facility 04-07-2022 Telephone encounter Note Form atting of this note might be different from the original. Situation: Requesting DOT physical Appt Background: calling to schedule pt with provider was pt at [facility] it's time to have pt's DOT physical as soon as possible Assessment: advise Recommendation: Please call either Maryana at [phone] or pt at [phone] to schedule [facility] Evaluation note Note Date & Type Note Facility Evaluation note Diagnosis Perforated tympanic membrane, left- Primary Conductive hearing loss of left ear with unrestricted hearing of right ear Acute suppr otitis media w/o spon rupt ear drum, left ear documented in this encounter [facility] Summary Purpose Family History No Family History Records FoundNo Family History Records FoundNo Family History Records FoundNo Family History Records FoundNo Family History Records Found Advance Directives No Advanced Directives Records FoundNo Advanced Directives Records FoundNo Advanced Directives Records FoundNo Advanced Directives Records FoundNo Advanced Directives Records Found Additional Source Comments (unrecognized sect ion and content) No Status Records FoundNo Status Records FoundNo Status Records FoundNo Status Records FoundNo Status Records Found INFORMATION SOURCE (unrecogn ized section and content) DATE CREATED AUTHOR 04/26/2019 [facility] DATE CREATED AUTHOR AUTHOR'S ORGANIZ ATION [facility]20[facility] DATE CREATED AUTHOR AUTHOR'S ORGANIZ ATION 01/09/2023 [facility] DATE CREATED AUTHOR AUTHOR'S ORGANIZ ATION 05/17/2023 [facility] DATE CREATED AUTHOR AUTHOR'S ORGANIZ ATION 05/27/2024 [facility] Reason for Visit (unrecogniz ed section and content) Reason Onset Date Comments Requesting DOT physical Appt 04/07/2022 Reason Comments Consult Hole in Eardrum Care Teams (unrecognized sec tion and content) 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 This clinical summary was aggregated from multiple sources. Caution should be exercised in using it in the provision of clinical care. This summary normalizes information from multiple sources, and as a consequence, information in this document may materially change the coding, format and clinical context of patient data. In addition, data may be omitted in some cases. CLINICAL DECISIONS SHOULD BE BASED ON THE PRIMARY CLINICAL RECORDS. [employer] [facility]. provides no warranty or guarantee of the accuracy or completeness of information in this document.
[2025-03-06 12:26] LABS: Color, Urine Yellow (Yellow); Glucose, Dipstick Normal (Normal); Ketone-Dipstick Negative (Negative); Leukocyte Esterase-Dipstick Negative /ul (Negative); Nitrite-Dipstick Negative (Negative); Occult Blood-Urine Negative /ul (Negative); Protein-Dipstick Negative (Negative); Specific Gravity, Urine 1.015 (1.002-1.030); Urine Bilirubin Dipstick Negative (Negative); Urine Clarity Clear (Clear); Urine Urobilinogen Normal (Normal)
[2025-03-06 12:39] LABS: ALB/GLOB Ratio 1.1 RATIO (0.9-2.4); AST(SGOT) 22 U/L (<=37); Alanine Aminotransfer ALT/SGPT 21 U/L (<=46); Albumin, Serum 3.9 g/dL (3.4-4.8); Alkaline Phosphatase 88 U/L (40-129); Anion Gap 11 (5-15); BUN 14 mg/dL (4-19); Calcium,Total 9.7 mg/dL (7.6-11.0); Carbon Dioxide 26.2 mmol/L (21.0-32.0); Chloride 101 mmol/L (98-108); Cholesterol 93 mg/dL (<=200); Creatinine, Serum 1.04 mg/dL (0.70-1.20); EST Glomerular Filtration Rate 79 (>60); Globulin 3.5 g/dL (2.2-4.2); Glucose 102 mg/dL (70-99); High Density Lipoprotein 29 mg/dL; Low Density Lipoprotein Calc. 42 mg/dL; Magnesium 2.3 mg/dL (1.5-2.2); Potassium 4.2 mmol/L (3.3-5.1); Protein, Total 7.4 g/dL (5.9-8.4); Sodium Level 139 mmol/L (133-145); Thyroid Stim Hormone (TSH) 0.717 uIU/mL (0.300-4.200); Total Bilirubin 0.54 mg/dL (0.00-1.30); Triglycerides 105 mg/dL; Very Low Density Lipoprotein 21 mg/dL (5-40); cholesterol:hdl ratio screen 3.15
[2025-03-06 12:41] LABS: Absolute Lymphocyte Count 2.11 X10^3/uL (0.83-4.51); Absolute Neutrophil Count 6.5 X10^3/uL (2.0-7.7); Basophil# 0.09 X10^3/uL; Basophil% 0.9 % (0-1); Eosinophil# 0.62 X10^3/uL; Hematocrit 46.1 % (40-54); Hemoglobin 15.3 g/dL (13.0-16.5); Lymphocyte # 2.11 X10^3/ul (0.83-4.51); Lymphocyte % 20.4 % (19-41); Mean Corp Hgb Conc 33.2 g/dL (32-36); Mean Corpuscular Hgb 29.9 pg (27.0-32.0); Mean Corpuscular Volume 90.2 fL (80-94); Monocyte# 1.01 X10^3/uL; Monocyte% 9.7 % (0-10); NRBC Flagged by Analyzer 0 % (0-5); Neutrophil # 6.48 X10^3/uL (2.7-7.7); Neutrophil % 62.5 % (47-70); Platelet Count 298 K/mm3 (150-450); RBC Distribution Width CV 14.7 % (11.6-14.6); Red Blood Count 5.11 M/mm3 (4.6-6.2); White Blood Count 10.4 K/mm3 (4.4-11.0)
== END | disposition home or self-care (01) ==
PROVIDERS: PCP Nurse Practitioner Family
DX: I10 Essential (primary) hypertension (principal); R97.20 Elevated prostate specific antigen [PSA]; Z13.1 Encounter for screening for diabetes mellitus; Z13.220 Encounter for screening for lipoid disorders; R25.2 Cramp and spasm
CPT/HCPCS: 36415; 80053; 80061; 81002; 83735; 84443; 85025

== ENCOUNTER → 2025-05-11 | Outpatient (CLI) | payer MEDICARE, SELFPAY ==
[2025-05-14 05:07] LABS: QNTFERON TB Mitogen Value > 10.00 IU/mL (.); QNTFERON TB Nil Value 0.03 IU/mL (.); QNTFERON TB1+ Ag Value 0.02 IU/mL (.); QNTFERON TB2+ Ag Value 0.02 IU/mL (.); QNTIFERON TB Positive Criteria Negative (Negative)
== END | disposition home or self-care (01) ==
LOC: MTLAB 08:38
PROVIDERS: Referring Provider Physician Assistant Medical; Visit Provider Physician Assistant Medical
DX: L40.0 Psoriasis vulgaris (principal)
CPT/HCPCS: 36415; 86480